=== PATIENT | male | born 1990 | race Caucasian/White ===

== ENCOUNTER 2017-02-03 20:49 | Emergency (ER) | payer OTHER, SELFPAY ==
[~2017-02-03] VITALS: Ht 182.9 cm; Wt 109.1 kg
[2017-02-03 20:50] VITALS: BP 172/113
== END 2017-02-03 22:18 | disposition home or self-care (01) ==
LOC: M ED 20:49
DX: R59.0 Localized enlarged lymph nodes (principal)